=== PATIENT | male | born 1975 | race African-American/Black ===

== ENCOUNTER 2018-03-31 10:34 | Emergency (ER) | payer OTHER ==
[~2018-03-31] VITALS: Ht 160 cm; Wt 106.6 kg
[2018-03-31 11:35] LABS: PLATELET COUNT 198 K/uL (142-355)
[2018-03-31 11:47] LABS: POTASSIUM 3.1 mmol/L (3.6-5.2)
[2018-03-31 13:30] VITALS: BP 124/79; TEMP 97.7
== END 2018-03-31 13:30 | disposition short-term general hospital (02) ==
LOC: ED 10:34
PROVIDERS: Emergency Medicine
DX: T60.3X1A Toxic effect of herbicides and fungicides, accidental (unintentional), initial encounter (principal); I45.81 Long QT syndrome; T22.442A Corrosion of unspecified degree of left axilla, initial encounter; T22.441A Corrosion of unspecified degree of right axilla, initial encounter; T32.0 Corrosions involving less than 10% of body surface
CPT/HCPCS: 36415; 80053; 81000; 85027; 90471; 90715; 93005; 96365; 99284; J0696; J7040; J7120

== ENCOUNTER 2018-03-31 13:35 | Outpatient (CLI) | payer OTHER | END 2018-03-31 15:31 | disposition short-term general hospital (02) | LOC: AMB 13:35 | DX: T60.3X1A Toxic effect of herbicides and fungicides, accidental (unintentional), initial encounter (principal); I45.81 Long QT syndrome; T22.442A Corrosion of unspecified degree of left axilla, initial encounter; T22.441A Corrosion of unspecified degree of right axilla, initial encounter; T32.0 Corrosions involving less than 10% of body surface | CPT/HCPCS: A0425; A0427 ==